=== PATIENT | female | born 1990 | race Caucasian/White ===

== ENCOUNTER 2016-12-10 17:33 | Emergency (ER) | payer BC ==
[2016-12-10 17:52] VITALS: BP 120/84
--- NOTE | 2016-12-10 19:44 | UC ---
Skin Complaint HPI - HPI Summary HPI Summary: Patient presents to the with facial erythema and slight swelling x 2 days. The area is itching and covers the left side of the cheek and the right chin. She denies soap or detergent changes. Denies medication changes. Otherwise healthy. Denies fevers, sweats and chills. No exposure to chemicals, new makeup or tick bites or bug bites. - History of Current Complaint Hx Obtained From: Patient Hx Last Menstrual Period: 12/09/16 ?: No Onset/Duration: Sudden Onset Skin Exposure Onset/Duration: Hours Ago, Days Ago Onset Severity: Moderate Current Severity: Moderate Pain Intensity: 1 Pain Scale Used: 0-10 Numeric Location: Face Character: Redness, Raised Aggravating Factor(s): Touch Alleviating Factor(s): Antihistamines, Cold Compresses Associated Signs & Symptoms: Positive: Negative <Akosua Newton - Last Filed: 12/10/16 19:39> <Norma Manning - Last Filed: 12/10/16 21:50> - History of Current Complaint Chief Complaint: Rash Time Seen by Provider: 12/10/16 18:38 Stated Complaint: RASH - Allergy/Home Medications Allergies/Adverse Reactions: Allergies Allergy/AdvReac Type Severity Reaction Status Date / Time No Known Allergies Allergy Verified 01/30/16 16:08 Home Medications: Home Medications Levonorgestrel-Ethinyl Estradi [Seasonique] 1 tab PO 12/10/16 [History] Review of Systems Constitutional: Negative Skin: Rash Eyes: Negative Respiratory: Negative Cardiovascular: Negative Gastrointestinal: Negative Motor: Negative Neurovascular: Negative Musculoskeletal: Negative Neurological: Negative Is Patient Immunocompromised?: No All Other Systems Reviewed And Are Negative: Yes <Akosua Newton - Last Filed: 12/10/16 19:39> PMH/Surg Hx/FS Hx/Imm Hx Previously Healthy: Yes - Surgical History Surgical History: None - Family History Known Family History: Positive: Unknown - Social History Occupation: Employed Full-time Lives: With Family Alcohol Use: None Substance Use Type: None Smoking Status (MU): Never Smoked Tobacco <Akosua Newton - Last Filed: 12/10/16 19:39> Physical Exam Triage Information Reviewed: Yes Appearance: Well-Appearing, Well-Nourished Vital Signs: Initial Vital Signs Temp 99.3 F 12/10/16 17:49 Pulse 98 12/10/16 17:49 Resp 18 12/10/16 17:49 BP 120/84 12/10/16 17:49 Pulse Ox 100 12/10/16 17:49 Vital Signs Reviewed: Yes Eye Exam: Normal Eyes: Positive: Conjunctiva Clear ENT Exam: Normal ENT: Positive: Normal ENT inspection Dental Exam: Normal Neck exam: Normal Neck: Positive: Supple, Nontender, No Lymphadenopathy Respiratory Exam: Normal Respiratory: Positive: Chest non-tender, Lungs clear Cardiovascular Exam: Normal Cardiovascular: Positive: RRR Musculoskeletal Exam: Normal Musculoskeletal: Positive: Strength Intact Neurological Exam: Normal Neurological: Positive: Alert Psychological: Positive: Normal Response To Family, Age Appropriate Behavior Skin: Positive: rashes <Akosua Newton - Last Filed: 12/10/16 19:39> Vital Signs: Initial Vital Signs Temp 99.3 F 12/10/16 17:49 Pulse 98 12/10/16 17:49 Resp 18 12/10/16 17:49 BP 120/84 12/10/16 17:49 Pulse Ox 100 12/10/16 17:49 <Norma Manning - Last Filed: 12/10/16 21:50> Course/Dx - Course Course Of Treatment: Rash to the left side of the cheek and right chin x 2 days. Denies fevers. Denies changes. Notes to itchiness, but no pain. The area is well demarcated and erythematous but no warmth. She is given prednisone and hydroxyzine. Will defer at this time for any anti-fungals or anti-bacterials. She understands and agrees to return if medications are not improving the symptoms. There are no vesicles to suggest herpetic etiology. - Differential Diagnoses - Skin Complaint Differential Diagnoses: Contact Dermatitis, Poison Earlene, Poison Roberta - Diagnoses Provider Diagnoses: Facial Rash <Akosua Newton - Last Filed: 12/10/16 19:39> Discharge <Akosua Newton - Last Filed: 12/10/16 19:39> <Norma Manning - Last Filed: 12/10/16 21:50> - Discharge Plan Condition: Stable Disposition: HOME Prescriptions: hydrOXYzine HCL TAB* [Atarax TAB 50 MG *] 50 mg PO TID PRN #15 tab MDD 3 PRN Reason: Itching predniSONE TAB* [Deltasone TAB*] 50 mg PO DAILY #6 tab MDD 1 Patient Education Materials: Acute Rash (ED) Referrals: No Primary Care Phys,NOPCP [Primary Care Provider] - Additional Instructions: Continue with OTC hydrocortisone to the face Hydroxyzine for itching - up to three times daily Prednisone -Once daily for 6 days If you develop worsening symptoms, or symptoms fail to improve in 3-4 days - return to the Attestation Statement User Type: Provider - I was available for consult. This patient was seen by the BHAVNA. The patient was not presented to, seen by, or examined by me. -Zoraida <Norma Manning - Last Filed: 12/10/16 21:50>
== END 2016-12-10 19:05 | disposition home or self-care (01) ==
LOC: UCEAST 17:33
DX: R21 Rash and other nonspecific skin eruption (principal)
CPT/HCPCS: 99212; G0463

== ENCOUNTER → 2019-01-07 | Day surgery (SDC) | payer BC ==
[~2019-01-07] MED LIST: Acetaminophen TAB* 325 MG ONE; Acetaminophen TAB* 325 MG PO ONE; Buffered Lidocaine 1% SYRIN* 1 ML/SYRINGE INTRADERM ONE; Chloroprocaine 2%* 20 ML VIAL ONE; DOXYcycline IV 200 MG in NS 250 mL *Pre-Op OBGYN IVPB ONE; Ketorolac INJ* 30 MG/ML 1 ML VIAL ONE; Lactated Ringers 1000 ML Bag* 1,000 ML IV SCH; Midazolam* 1 MG/ML 5 ML VIAL (5 MG) ONE; OXYTOCIN* 10 UNITS/ML 1 ML VIAL ONE; fentaNYL* 50 MCG/ML 2 ML VIAL (100 MCG VIAL) ONE
[2019-01-07 07:21] LABS: ABS Lymphocytes 0.9 10^3/ul (1.0-4.8); ABS Monocytes 0.3 10^3/ul (0-0.8); ABS Neutrophils 15.4 10^3/ul (1.5-7.7); Eosinophil % 0.1 %; Hematocrit 41 % (35-47); Hemoglobin 13.9 g/dL (12.0-16.0); Lymphocyte % 5.6 %; Mean Corpuscular HGB Conc 34 g/dL (31-36); Mean Corpuscular Hemoglobin 31 pg (27-31); Mean Corpuscular Volume 91 fL (80-97); Mean Platelet Volume 8.8 fL (7.4-10.4); Platelet Count 333 10^3/uL (150-450); Red Blood Count 4.45 10^6 /uL (3.70-4.87); Red Cell Distribution Width 13 % (10-15); White Blood Count 16.7 10^3/uL (3.5-10.8)
[2019-01-07 09:26] VITALS: BP 111/68
--- NOTE | 2019-01-08 00:12 | OP ---
DATE OF OPERATION: 01/07/19 [facility] DATE OF : 89 SURGEON: Dr. Magallon. ANESTHESIOLOGIST: Dr. Dixon. ANESTHESIA: Spinal. PRE-OP DIAGNOSIS: Incomplete . POST-OP DIAGNOSIS: Incomplete . OPERATIVE PROCEDURE: Suction dilation and curettage with ultrasound assistance. ESTIMATED BLOOD LOSS: 50 cc. URINE OUTPUT: 50 cc. IV FLUIDS: 1000 cc lactated Ringer's. MATERIALS TO LAB: Products of conception. INDICATIONS: This patient was a 28-year-old 1, para 0, recently diagnosed with an early and then noted to have multiple sac like areas within the uterus. During observation, the patient's hCG started to decrease and last night, she started to have severe cramping and fairly persistent bleeding. The patient had already been scheduled for a D&C for missed and this morning the patient desired to continue with this plan , as she has still not passed any tissue. She was extensively counseled and consent was signed. FINDINGS: Gestational sac type structures no longer visible in the uterus, only heterogenous tissue on ultrasound. Moderate amount of tissue was present within the uterus and fully evacuated with ultrasound guidance. COMPLICATIONS: None. DESCRIPTION OF PROCEDURE: The risks, benefits, and alternatives were described to the patient and an informed consent was obtained. The patient was taken to the operating room with IV running, where spinal anesthesia was induced and found to be adequate. The patient was then also given some sedation. A time- out was performed. The patient was prepped and draped in the normal sterile fashion in the high lithotomy position in [facility]. The patient's bladder was emptied. Initial abdominal ultrasound was performed and this was left in place on the abdomen when the curette was advanced. A bivalve speculum was placed in the vagina and a single tooth tenaculum was placed on the anterior cervix. The cervix was then gently dilated using Hanks dilators to a size 30. At that time , a size 10 curved suction curette was advanced through the cervix and into the uterine cavity. IV Pitocin was also started at that time. With three passes, the uterine contents were evacuated with the ultrasound for guidance. After that there were no visible intrauterine contents. The suction curette was removed and a medium Banjo curette was used to gently curette the uterine cavity and no significant tissue was present. The tenaculum was then removed and there was minimal bleeding present from the tenaculum sites and from the cervical os. The speculum was removed and some fundal massage was performed with bimanual exam. The patient was then return to the supine position. The patient tolerated the procedure well. Sponge, lap and needle counts were correct x2. [id number]/[facility] #: [id number] MTDD
== END | disposition home or self-care (01) ==
LOC: OR 05:45
PROVIDERS: ATTEND Obstetrics & Gynecology
DX: O02.1 Missed abortion (principal); E28.2 Polycystic ovarian syndrome
CPT/HCPCS: 36415; 84702; 85025; 86850; 86900; 86901; 88305; A9270-GY; J1885; J2250; J2400; J2590; J3010

== ENCOUNTER 2020-12-20 04:32 | Inpatient (IN) ==
[2020-12-20] MEDS ORDERED: Nalbuphine 10 MG/ML 1 ML VIAL IM ONE (07:36)
[2020-12-20] MEDS ORDERED: Promethazine INJ(RESTRICTED) 25 MG/ML 1 ml VIAL IM ONE (07:37)
[2020-12-20 08:40] LABS: Rapid COVID-19 Molecular Undetected (Undetected)
[2020-12-20] MEDS ORDERED: Lactated Ringers 1000 ml BAG 1,000 ML IV ONE ×2 (16:54→21:40)
[2020-12-20] MEDS ORDERED: Buffered Lidocaine 1% SYRIN 1 ml INTRADERM ONE (16:54)
[2020-12-20] MEDS ORDERED: Lactated Ringers 1000 ml BAG 1,000 ML IV SCH ×2 (17:00→22:00)
[2020-12-20 20:47] LABS: Urine Benzodiazepine Screen None Detected (None Detect); Urine Cannabinoids Screen None Detected (None Detect); Urine Opiates Screen None Detected (None Detect)
[2020-12-20] MEDS ORDERED: OBEPIDURAL 250 ML EPIDURAL ONE (20:51)
[2020-12-20 20:52] LABS: ABS Eosinophils 0.1 10^3/ul (0-0.6); ABS Lymphocytes 1.6 10^3/ul (1.0-4.8); ABS Monocytes 0.5 10^3/ul (0-0.8); ABS Neutrophils 10.4 10^3/ul (1.5-7.7); Eosinophil % 0.7 %; Hematocrit 35 % (35-47); Hemoglobin 12.1 g/dL (12.0-16.0); Lymphocyte % 12.8 %; Mean Corpuscular HGB Conc 35 g/dL (31-36); Mean Corpuscular Hemoglobin 31 pg (27-31); Mean Corpuscular Volume 90 fL (80-97); Mean Platelet Volume 10.5 fL (7.4-10.4); Platelet Count 260 10^3/uL (150-450); Red Blood Count 3.86 10^6 /uL (3.70-4.87); Red Cell Distribution Width 13 % (10-15); White Blood Count 12.6 10^3/uL (3.5-10.8)
[2020-12-20] MEDS ORDERED: EPHEDrine (Pressors) 50 MG/ML VIAL IV PUSH PRN (21:40)
[2020-12-20] MEDS ORDERED: Phenylephrine 40 mcg/mL 10mL (400mcg) SYRINGE IV PUSH PRN (21:40)
[2020-12-20] MEDS ORDERED: Lactated Ringers 1000 ml BAG 500 ML IV PRN (21:40)
[2020-12-20] MEDS ORDERED: Sodium Citrate/Citric Acid LIQ 15 ML UDC PO PRN (21:40)
[2020-12-20] MEDS ORDERED: OBEPIDURAL 250 ML EPIDURAL SCH (22:00)
[2020-12-20 22:55] LABS: Urine Appearance Clear; Urine Bilirubin Negative (Negative); Urine Blood Negative (Negative); Urine Color Straw; Urine Glucose Negative (Negative); Urine Ketones Negative (Negative); Urine Nitrite Negative (Negative); Urine Protein Negative (Negative); Urine Specific Gravity 1.002 (1.002-1.030); Urine Urobilinogen Negative (Negative)
[2020-12-21] MEDS ORDERED: Oxytocin in LR 20 UNITS/1,000 ML BAG IVPB SCH ×2 (10:00→14:00)
[2020-12-21] MEDS ORDERED: Dibucaine 1% OINT 28.35 GM TUBE PR PRN (13:28)
[2020-12-21] MEDS ORDERED: Lactated Ringers 1000 ml BAG 1,000 ML IV SCH (14:00)
[2020-12-21] MEDS: Witch Hazel PAD JAR TOPICAL PRN (15:22)
[2020-12-21] MEDS ORDERED: Lidocaine 1% VIAL 10 MG/ML VIAL ONE (21:14)
[2020-12-22 08:17] LABS: ABS Basophils 0.1 10^3/ul (0-0.2); ABS Eosinophils 0.2 10^3/ul (0-0.6); ABS Lymphocytes 1.8 10^3/ul (1.0-4.8); ABS Monocytes 0.5 10^3/ul (0-0.8); ABS Neutrophils 11.8 10^3/ul (1.5-7.7); Eosinophil % 1.7 %; Hematocrit 34 % (35-47); Hemoglobin 11.7 g/dL (12.0-16.0); Lymphocyte % 12.4 %; Mean Corpuscular HGB Conc 35 g/dL (31-36); Mean Corpuscular Hemoglobin 32 pg (27-31); Mean Corpuscular Volume 91 fL (80-97); Mean Platelet Volume 10.4 fL (7.4-10.4); Platelet Count 228 10^3/uL (150-450); Red Blood Count 3.69 10^6 /uL (3.70-4.87); Red Cell Distribution Width 14 % (10-15); White Blood Count 14.3 10^3/uL (3.5-10.8)
[2020-12-22] MEDS: Witch Hazel PAD JAR TOPICAL PRN (14:24)
[2020-12-23 07:35] VITALS: BP 125/80
== END 2020-12-23 11:26 | disposition home or self-care (01) | DRG 560 ==
LOC: MCHOBOUT 04:32 → MCHOB 17:22
PROVIDERS: ADMIT Midwife; ATTEND Midwife

== ENCOUNTER 2023-06-12 19:09 | Inpatient (IN) ==
[2023-06-12] MEDS ORDERED: Lidocaine 1% VIAL 10 MG/ML 30 ML VIAL INJ PRN (19:52)
[2023-06-12] MEDS ORDERED: Prochlorperazine 5 mg/ml 2 ml VIAL (10 mg) IV PRN (19:52)
[2023-06-12] MEDS: Dinoprostone 10 MG VAG.SUPP VAGINAL ONE (20:35)
[2023-06-12 22:10] LABS: Urine Benzodiazepine Screen None Detected (None Detect); Urine Cannabinoids Screen None Detected (None Detect); Urine Opiates Screen None Detected (None Detect)
[2023-06-13] MEDS: Witch Hazel PAD JAR TOPICAL SCH (02:21)
[2023-06-13] MEDS: Lidocaine 2% JELLY 6 ML Topical TOPICAL ONE (02:21)
[2023-06-13] MEDS: Buffered Lidocaine 1% SYRIN 1 ml INTRADERM ONE (09:27)
[2023-06-13 09:30] LABS: ABS Basophils 0.1 10^3/uL (0.0-0.1); ABS Eosinophils 0.1 10^3/uL (0.0-0.5); ABS Lymphocytes 1.7 10^3/uL (1.0-4.8); ABS Monocytes 0.5 10^3/uL (0.0-0.9); ABS Neutrophils 9.7 10^3/uL (1.5-7.6); ABS Nucleated RBC 0.02 10^3/ul; Eosinophil % 0.8 %; Hematocrit 38.2 % (35-45); Hemoglobin 13.3 g/dL (11.5-14.3); Lymphocyte % 14.1 %; Mean Corpuscular Hemoglobin 31.4 pg (27-33); Mean Corpuscular Hgb Conc 34.7 g/dL (31-36); Mean Corpuscular Volume 90.3 fL (80-97); Mean Platelet Volume 9.8 fL (7.5-11.2); Nucleated Red Blood Cells % 0.2 %/100WBC (0.0-0.8); Platelet Count 286 10^3/uL (150-450); Red Blood Count 4.23 10^6/uL (3.63-4.92); White Blood Count 12.1 10^3/uL (3.8-11.8)
[2023-06-13] MEDS: miSOPROStol 100 mcg TAB PO ONE (10:21)
[2023-06-13] MEDS: Lactated Ringers 1000 ml BAG 1,000 ML IV ONE (15:45)
[2023-06-13] MEDS: Lactated Ringers 1000 ml BAG 1,000 ML IV SCH (15:45)
[2023-06-13] MEDS: Oxytocin in LR 20,000 MILLI.UNIT/1,000 ML BAG IV SCH (16:00)
[2023-06-13] MEDS: OBEPIDURAL (200 ML) 200 ML EPIDURAL SCH (21:12)
[2023-06-13] MEDS ORDERED: Sodium Citrate/Citric Acid LIQ 15 ML UDC PO PRN (21:25)
[2023-06-13] MEDS ORDERED: Lactated Ringers 1000 ml BAG 500 ML IV PRN ×2 (21:25)
[2023-06-13] MEDS ORDERED: Phenylephrine 40 mcg/mL 10mL (400mcg) SYRINGE IV PUSH PRN ×2 (21:25)
[2023-06-13 23:11] LABS: Urine Appearance Clear; Urine Bilirubin Negative (Negative); Urine Blood Negative (Negative); Urine Color Light-Yellow; Urine Glucose Negative (Negative); Urine Ketones Negative (Negative); Urine Nitrite Negative (Negative); Urine Protein Negative (Negative); Urine Specific Gravity 1.013 (1.002-1.030); Urine Urobilinogen Negative (Negative)
[2023-06-14] MEDS ORDERED: Glycerin ADULT 2.4 gm SUPP PR PRN (03:45)
[2023-06-14] MEDS ORDERED: Witch Hazel PAD JAR TOPICAL PRN (03:45)
[2023-06-14] MEDS ORDERED: Lactated Ringers 1000 ml BAG 1,000 ML IV SCH (04:00)
[2023-06-14] MEDS: Dibucaine 1% OINT 28.35 GM TUBE PR PRN (04:13)
[2023-06-14] MEDS: Lidocaine 2% JELLY 6 ML Topical TOPICAL ONE (08:08)
[2023-06-15] MEDS: Lactated Ringers 1000 ml BAG 1,000 ML IV ONE (07:22)
[2023-06-15] MEDS: Lidocaine 1.5% EPI 1:200,000 30 ML SDV ONE (07:22)
[2023-06-15] MEDS: OBEPIDURAL (200 ML) 200 ML EPIDURAL ONE (07:23)
[2023-06-15] MEDS: Lactated Ringers 1000 ml BAG 1,000 ML IV SCH (07:23)
[2023-06-15 07:26] LABS: ABS Basophils 0.1 10^3/uL (0.0-0.1); ABS Eosinophils 0.2 10^3/uL (0.0-0.5); ABS Lymphocytes 2.2 10^3/uL (1.0-4.8); ABS Monocytes 0.4 10^3/uL (0.0-0.9); ABS Neutrophils 7.7 10^3/uL (1.5-7.6); ABS Nucleated RBC 0.01 10^3/ul; Eosinophil % 1.9 %; Hemoglobin 11.9 g/dL (11.5-14.3); Lymphocyte % 21.1 %; Mean Corpuscular Hemoglobin 31.6 pg (27-33); Mean Corpuscular Hgb Conc 34.9 g/dL (31-36); Mean Corpuscular Volume 90.6 fL (80-97); Mean Platelet Volume 9.8 fL (7.5-11.2); Nucleated Red Blood Cells % 0.1 %/100WBC (0.0-0.8); Platelet Count 238 10^3/uL (150-450); Red Blood Count 3.75 10^6/uL (3.63-4.92); Red Cell Distribution Width 14.2 % (12-17); White Blood Count 10.6 10^3/uL (3.8-11.8)
[2023-06-15 08:04] VITALS: BP 95/59
== END 2023-06-15 12:06 | disposition home or self-care (01) | DRG 560 ==
LOC: MCHOBOUT 19:09 → MCHOB 19:53
PROVIDERS: ADMIT Advanced Practice Midwife; ATTEND Registered Nurse